=== PATIENT | female | born 1980 ===

== ENCOUNTER 2019-02-28 06:28 | Inpatient (IN) | payer OTHER ==
[~2019-02-28] VITALS: Ht 160 cm; Wt 74.4 kg
[2019-02-28] MEDS ORDERED: IRON325 MG PO (07:34)
[2019-02-28] MEDS ORDERED: PROBIOTIC1 EAC2 PO (07:35)
[2019-02-28] MEDS ORDERED: PRENATAL CAPLE1 EAC1 PO (07:35)
[2019-03-02] MEDS ORDERED: FUSION PLUS CA1 EACH PO (10:35)
[2019-03-02] MEDS ORDERED: IBUPROFEN600 MG PO (10:35)
== END 2019-03-02 13:06 | disposition home or self-care (01) | DRG 807 ==
LOC: LDR 06:28 → OB/GYN 17:43
PROVIDERS: ADMIT Specialist
PROC: 10E0XZZ Delivery of Products of Conception, External Approach (ICD-10-PCS; principal; 2019-02-28)
PROC: 3E033VJ Introduction of Other Hormone into Peripheral Vein, Percutaneous Approach (ICD-10-PCS; 2019-02-28)
PROC: 4A1HXCZ Monitoring of Products of Conception, Cardiac Rate, External Approach (ICD-10-PCS; 2019-02-28)
DX: O80 Encounter for full-term uncomplicated delivery (principal); Z37.0 Single live birth; Z3A.38 38 weeks gestation of pregnancy